=== PATIENT | male | born 2000 | race Caucasian/White ===

== ENCOUNTER 2022-02-20 09:46 | Outpatient (RCR) | payer BC, SELFPAY ==
--- NOTE | 2022-02-20 10:10 | BH.SGPN.GN ---
Behaviors/Verbalizations/Mental Status: []Client alert and oriented, casually dressed and groomed. Eye contact good. Motor activity appropriate. Speech within normal limits. Affect constricted, mood anxious and depressed. Thoughts linear, logical, no signs of hallucinations or delusions. Client Response/Progress/Benefit: []Client first day in IOP tx. Attentive, though remained passively engaged, taking notes and completed worksheet. Connected with discussion on crisis and how coping with external crises by using unhealthy coping skills could result in a personal crisis. Nodding throughout discussion. Group reflected on the importance of having awareness of personal warning signs to prevent reaching crisis point. Group identified potential warning signs for crisis and client completed the personal warning signs worksheet. Client identified personal crisis warning signs to include: negative thoughts, apathy, and not taking care of himself. Client benefited by increasing awareness of what leads to crisis and personal warning signs. Client will continue IOP tx to prevent decompensation and maintain safety, increase understanding and use of healthy skills, as well as improve daily functioning. Narrative Note: []
--- NOTE | 2022-02-20 10:15 | BH.COMM_ITS ---
Communication Note - Communication with Client Communication Note: Pt completed initial paperwork and [facility]. Case discussed with Dr. Alvarado with plan to admit to IOP with dx of F33.2
--- NOTE | 2022-02-20 10:15 | BH.COMM ---
Communication Note - Communication with Client Communication Note: Pt completed initial paperwork and [facility]. Case discussed with Dr. Alvarado with plan to admit to [facility] with dx of F33.2
--- NOTE | 2022-02-20 11:10 | BH.SGPN.GN ---
Behaviors/Verbalizations/Mental Status: []Client alert and oriented, casually dressed and groomed. Eye contact fair. Motor activity restless. Speech within normal limits. Affect constricted, mood anxious. Thoughts linear, logical, no signs of hallucinations or delusions. Client Response/Progress/Benefit: []Client responded well to session as evidenced by client listening attentively to others and providing strategies during small group discussion. Connected as fellow participants discussed the importance of identifying and addressing personal warning signs. Client identified warning signs for crisis and gained further awareness of earliest warning signs. Client created a crisis action plan to help client better manage warning signs for crisis. Client?s action plan for not taking care of self includes: opposite action to take a shower and shave, do one productive thing every day, and identify accomplishments. Client appeared to benefit from creating a crisis action plan and increasing self-awareness. Client's first day in IOP. Client to continue IOP tx to improve daily functioning, increase healthy coping and prevent decompensation.
--- NOTE | 2022-02-20 11:33 | BH.COMM ---
Communication Note - Communication with Client Communication Note: Met with pt to complete initial paperwork and complete the CSSR-S. No significant changes since intake. Pt presents as a moderate risk per the CSSR-S. Pt denies any active suicidal ideations, plan, or intent within the past month but does report chronic passive thoughts and thoughts of not caring if he were to go to sleep and not wake up. Pt additionally reports on several occasions 3 months ago, driving past a arriaga he has had intrusive thoughts about driving into. Denies any active thoughts, plan, or intent at that time. Pt has a hx of one prior interrupted attempt a few years ago in which pt reports he had a loaded gun to his head but stopped himself from pulling the trigger as he reports ?I didn?t want my mom to find me like that?. Reports he did not tell anyone at the time and did not seek medical or psychiatric tx. Reports he has since given his father his gun and denies access to weapons or other lethal means at this time. Reports his parents and girlfriend are primary protective factors. Future oriented. Pt has a hx of self-harming via hitting himself, last occurring 1-2 weeks ago. Case discussed with Dr. Alvardao with plan to admit to IOP with dx Major Depressive Disorder, recurrent, severe, without psychosis F 33.2
--- NOTE | 2022-02-22 10:05 | BH.SGPN.GN ---
Behaviors/Verbalizations/Mental Status: [] Eye contact is good. Motor activity is appropriate. Appearance is casual. Speech is Appropriate. Mood is depressed. Affect is flat. Thoughts are linear and logical. No evidence of psychosis. Client Response/Progress/Benefit: [] Pt participated only when prompted. Attentive during psychoeducation on different anxiety disorders. Attentive during a interactive discussion on defining anxiety, identifying physiological symptoms of anxiety, and identifying safety behaviors (behaviors used to ease anxiety or discomfort which are often unhealthy). Physiological symptoms reported by patient were clenched jaw and shaky hands. Along with peers identified common safety behaviors including; sleeping to cope, cancelling plans, not answering the phone, and utilizing substances to numb the pain. Benefited from increased awareness and insight on anxiety and its impact. Plan is to continue in IOP to maintain safety,increase healthy coping, and prevent decompensation. Narrative Note: []
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
[2022-02-22 11:52] VITALS: BP 144/78; PULSE 75
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
--- NOTE | 2022-02-22 13:02 | BH.DR.ITP ---
Initial Treatment Plan Patient Information Visit Information: ADMISSION DATE: EXPECTED LOS: 4-6 weeks Problems/Symptoms Problem #1:: Depression Symptom:: Sadness, hopelessness, worthlessness, anhedonia, biological disruption of sleep, low energy, decreased concentration, passive thoughts of , fleeting, passive suicidal ideation Problem #2:: Anxiety Symptom:: Worry, rumination, racing thoughts, panic attacks
--- NOTE | 2022-02-23 09:10 | BH.SGPN.GN ---
Behaviors/Verbalizations/Mental Status: [] Eye contact is good. Motor activity is appropriate. Appearance is casual. Speech is Appropriate. Mood is depressed. Affect is flat. Thoughts are linear and logical. No evidence of psychosis. Reviewed daily check in sheet and no reports of suicidal ideations or intent. Client Response/Progress/Benefit: [] Pt participated when prompted. Attentive at times. Emotion for today is content. Mental health wins include spending quality time with GF and I started to work out again yesterday. Reports that he has not worked out in awhile. When asked what triggered him to start yesterday states I was just motivated. Also motivated to make other changes in his life including looking for a new job. Briefly discussed how his current job is not beneficial. He believes that his anxiety is better this week stating he feels more calm. Progress noted per pt report. Benefited from group support. Will continue in IOP to maintain safety, increase healthy coping, and stabilize mood. Narrative Note: []
--- NOTE | 2022-02-23 10:10 | BH.SGPN.GN ---
Behaviors/Verbalizations/Mental Status: [] Eye contact is fair. Motor activity is appropriate. Appearance is casual. Speech is Appropriate. Mood is anxious. Affect is constricted. Thoughts are linear and logical. No evidence of psychosis. Client Response/Progress/Benefit: [] Pt was a passive participant in group discussion and activity. Attentive during psychoeducation on social stigma vs self-stigma. Pt was attentive to others during discussion on the question of What impacts how we define and view ourselves? Pt attentive as group identified several aspects that impact how we view ourselves which include; past experiences/exposure, our thoughts/current mental health state, our emotions, upbringing, and what other people tell us. Pt also participated in identifying examples of social stigma for mental health illness which included too sensitive, looking for attention, overly emotional, psycho, crazy, just an excuse, not working hard enough, lazy, mental health is not real, just a pessimist, and mental health can just be turned off. Pt chose to not share how stigma has impacted him. Benefited from increased awareness of how mental health stigma can impact individuals and treatment. Plan is to continue in IOP to improve daily functioning, increase confidence and prevent decompensation.
--- NOTE | 2022-02-23 12:17 | BH.MTP_ITS ---
Master Treatment Plan - Patient Information Program Physician:: Dr. Alvarado Primary Therapist:: Cathryn Ball [facility] - Psychiatric Diagnoses Psychiatric Diagnoses:: 1. Major depressive disorder, recurrent, severe without psychosis. 2. Generalized anxiety disorder. 3. Rule out Bipolar Disorder Diagnosis Code(s):: F33.2 - Estimated LOS Estimated LOS (in weeks):: 6
--- NOTE | 2022-02-23 15:41 | BH.MDN_ITS ---
Multi-Disciplinary Note - Note 30-min Individual Time Started:: 11:30 Date: 02/23/22 Purpose of session/treatment goals addressed:: Purpose of session was to assess pt's current symptoms and stressors. Additional focus was on establishing IOP treatment goals. Eye Contact:: Fair Motor Activity:: Restless Appearance:: Casual Speech:: Appropriate Mood:: Anxious, Depressed Affect:: Constricted Thoughts:: Linear, Logical, No evidence of hallucinations/delusions noted Staff Interventions:: psychoeducation on: - cognitive triangle and behavioral activation., CBT techniques, rapport building, strengths perspective, treatment planning, goal setting Client Response:: Client reported since middle school he has struggled with anxiety and depression. Client stated he didn't do much about it when he was younger. Client stated he got his first job out of high school working for [employer] which he enjoyed. Client reported after 4 years they let him go and the loss of this job led to significant negative thinking. Client stated this contributed to his aborted suicide attempt in 2020 in which he placed a gun in his mouth but did not pull the trigger. Client reported he did not tell anyone about this aborted attempt. Client stated he does not have access to guns and is not actively suicidal. 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 Client stated he doesn't know what he wants to do as a career and this causes him some stress. Client stated he believes his current job has negatively impacted his mental health. Reports he is seeking counseling because has noticed increased negative thinking and passing thoughts of . Client reported he does hear voices that tell him to hurt himself or hurt others. Stated he will hit himself to make the voices stop. Reported the voices sound like himself. Client reported he lacks healthy coping skills to use in the moment. Client reported he used to have many interests like hanging with friends, hiking, video games, relaxing outside, and camping. Client stated he hasn't engaged in these interests for 1 to 2 years. Client connected with cognitive triangle education, agreeing he would benefit from starting to engage in activities he used to enjoy. Client reported he did go to they gym yesterday and wants to continue doing that because made him feel better. Client identified while in IOP he would like to work on improving mindset, better way to look at life and find healthier coping skills. Client stated his goal for the weekend is to identify 2 daily wins and work out at least 3 times in the next week. Risks/Concerns:: Client reports passive thoughts of . Denies active suicidal ideation, plan or intention to date. future focused. denies access to firearms. Progress Toward Goals/Plan:: Progress noted with pt reporting use of opposite action to get self back to the gym. Pt's first week in IOP. Session focused on establishing goals for IOP. Pt continues to struggle with low motivation, passing thoughts of , loss of interest in most things, and anxious thought patterns. Pt to continue IOP to increase healthy coping, improve daily functioning, improve view of self and prevent decompensation. Time Stopped:: 12:00
--- NOTE | 2022-02-27 10:00 | BH.SGPN.GN ---
Behaviors/Verbalizations/Mental Status: []Eye contact is fair to good. Motor activity is appropriate. Appearance is casual and grooming tended to. Speech is Appropriate, quiet with limited input provided. Mood is anxious and depressed. Affect is constricted. Thoughts are linear and logical. No evidence of psychosis Client Response/Progress/Benefit: []Pt receptive of session, attentive throughout AEB taking notes and nodding during examples provided in discussion. Pt continues to struggle with contributing during discussion and often remains a passive participant. Appeared to connect with group topic of cognitive distortions and the impact of thought patterns on mental health, coping behaviors, and relationships. Reflected that he personally tends to struggle with distortions of: ?jumping to conclusions?, ?labeling?, and ?personalization?. However, pt struggled to further expand upon how these distortions have impacted his mental health and functioning in the past. Pt appeared to benefit from gaining insight on distorted thinking patterns and influence of distortions on maintaining unhealthy maintenance cycles. Progress remains limited as pt still new to treatment and struggles with active engagement in group. Recommended continued IOP treatment to improve sx management, provide psychoeducation on and promote healthy coping behaviors, as well as prevent decompensation. Narrative Note: []
--- NOTE | 2022-02-27 11:10 | BH.SGPN.GN ---
Behaviors/Verbalizations/Mental Status: []Client alert and oriented, casually dressed and groomed. Eye contact fair. Motor activity appropriate. Speech within normal limits. Affect constricted, mood dysthymic and anxious. Thoughts linear, logical, no signs of hallucinations or delusions. Client Response/Progress/Benefit: [] Pt engaged with his team in Cognitive Distortions Jeopardy and utilized notes from psychoeducation on cognitive distortions to assist peers in correctly answering questions. Experiential activity was beneficial as it provided a way for pt to review notes and handouts during psychoeducation to answer questions about cognitive distortions. Patient reported today's group helped him realize how his sister thoughts impact his ability to function and mood. Patient stated it's helpful to know that there is something he can do to change the way he thinks which can improve his mental health. Patient to continue IOP level of care to improve daily functioning, increase use of healthy coping skills, and prevent decompensation.
--- NOTE | 2022-03-01 09:00 | BH.SGPN.GN ---
Behaviors/Verbalizations/Mental Status: []Eye contact is fair. Motor activity is appropriate. Appearance is casual. Speech is Appropriate. Mood is dysthymic. Affect is constricted. Thoughts are linear and logical. No evidence of psychosis. Reviewed daily check in sheet and no reports of suicidal ideations or intent. Client Response/Progress/Benefit: []Client respond well to session as evidenced by sharing thoughts and feelings and listening attentively to others. Client reported mental positive as going on walks for the past 2 days. Client stated it has been helpful to get outside and enjoy the weather. Client reported additional months of positive as taking time to clean his aquarium out yesterday. Stated he also went to the gym again on Sunday which he stated has been helpful. Client identifies stressor as getting into spats with his girlfriend because she is stressed due to moving out of her dorm. Client benefit is most of today's glad. Client seen a benefit from expressing thoughts and feelings. Client to continue IOP level of care to increase confidence, challenge negative thinking, and prevent decompensation. Narrative Note: []
--- NOTE | 2022-03-01 10:08 | BH.SGPN.GN ---
Behaviors/Verbalizations/Mental Status: []Client alert and oriented, casually dressed and groomed. Eye contact fair to good. Motor activity appropriate. Speech within normal limits, quiet with limited input provided. Affect constricted, mood depressed and anxious. Thoughts linear, logical, no signs of hallucinations or delusions. Client Response/Progress/Benefit: []Client responded well to session AEB listening attentively to others and taking notes, however pt continues to struggle to provide any input to discussion. This may impede long-term tx material internalization. Client appeared to connect throughout group discussion defining pitfalls, AEB nodding, as well as psychoeducation on internal and external triggers to pitfalls. Client attentive as group worked to identify impact of pitfalls on mental health progress. Identified that he often allows others to take control of a situation which prevents his own voice from being heard and has been a personal pitfall for him in the past. Client participated in experiential activity illustrating how easy it is to fall into pitfalls when we are unaware of them. Client aided group in problem solving throughout activity. Appeared to benefit from increased knowledge of pitfalls and their triggers. Will continue IOP treatment to improve use of healthy coping skills, prevent decompensation, and continue to work on challenging distorted thoughts. Narrative Note: []
--- NOTE | 2022-03-01 12:01 | BH.MDN ---
Multi-Disciplinary Note - Note 30-min Individual Time Started:: 11:10 Date: 03/01/22 Purpose of session/treatment goals addressed:: Purpose of session was to address goal 1 from [facility] treatment plan. Eye Contact:: Fair Motor Activity:: Restless Appearance:: Casual Speech:: Appropriate Mood:: Euthymic Affect:: Constricted Thoughts:: Linear, Logical, No evidence of hallucinations/delusions noted Staff Interventions:: CBT techniques, rapport building, strengths perspective, goal setting Client Response:: Plan client reported recently he has been getting outside more frequently which he stated has been helping his mood. Client reported he also has been completing personal goals like cleaning out his fish tank and doing other chores. Client stated he has noticed decreased irritability in the last few days. Client reported his depression has been variable. Client reported yesterday he felt depressed, but was able to use opposite action to still get things done and get outside. Client reported on Sunday his depression was decreased and enjoyed his day. Client stated his anxiety has decreased a little in the last week. Client reported he has followed through with using behavioral activation like discussed in previous individual session. Client reached out to several of his friends and has scheduled to hang out on Sunday with them which is something he has not done in a few months. Client reported he also has been getting back into hiking the last few days especially since the weather is nicer. Client reported motivation is improving. Client connected with education provided by therapist about being more aware of what activities he engages in that can improve his mood and what activities he engages in that reinforce depression. Client able to work with therapist to identify several activities that would be helpful to his mood and other activities that would be important to avoid because the the activities reinforce depression. Client identified a small goal for the week is to identify at least 2 positives per day. Client agreed it would be helpful for him to address his anxiety while in group by starting to contribute at least 2 times per group. Risks/Concerns:: Client denies suicidal ideation, plan or intention to date. Future focused. Progress Toward Goals/Plan:: Progress noted with client reporting utilization of behavioral activation to increase engagement in activities he used to enjoy doing like going hiking and hanging out with friends. Client reporting decreased anxiety and irritability in the last week. Client continues to report variable depressive symptoms and needing to use opposite action in order to get chores and other tasks completed throughout the day. Client recommended to continue IOP level of care to continue use of healthy coping skills, improve positive thinking, and prevent decompensation. Time Stopped:: 11:35
--- NOTE | 2022-03-02 09:05 | BH.SGPN.GN ---
Behaviors/Verbalizations/Mental Status: [] Eye contact is good. Motor activity is appropriate. Appearance is casual. Speech is Appropriate. Mood is depressed. Affect is flat. Thoughts are linear and logical. No evidence of psychosis. Reviewed daily check in sheet and no reports of suicidal ideations or intent. Client Response/Progress/Benefit: [] Pt participated only on a couple occasions during group discussion. Declined to share or check-in. Daily symptoms tracker notes 3/5 for depression, 2/5 for anxiety and 1/5 for anger which are all decreased from yesterday. Should be noted that he was 2/5 for suicidal thoughts yesterday and 0/5 today also noting a decrease. Symptoms tracker also indicates that his mood and ability to function have also improve from yesterday. Pt has not been socially engaged in groups since starting the program as he he quiet most of the day. He did offer thoughts during some superficial conversation on movies. No progress noted per pt report however this is indicated in symptom tracker worksheet. Will continue in IOP to maintain safety, increase healthy coping, and improve functioing. Narrative Note: []
--- NOTE | 2022-03-02 10:05 | BH.SGPN.GN ---
Behaviors/Verbalizations/Mental Status: []Client alert and oriented, casually dressed and groomed. Eye contact good. Motor activity appropriate. Speech within normal limits. Affect constricted, mood depressed. Thoughts linear, logical, no signs of hallucinations or delusions. Client Response/Progress/Benefit: []Client receptive to session AEB taking notes throughout discussion on healthy relationships and listening attentively to others. Continues to struggle with actively engaging in group discussions and often opts out of providing personal reflections or processing with group which may impede progress and ability to fully benefit from group. Group discussed the benefits of healthy relationships and factors that contribute to relationships becoming unhealthy. Client nodding in agreement with some factors discussed, including poor communication and unmanaged mental health sx. Client participated in experiential activity modeling healthy relationship behaviors. Willing to take direction from peers, but again remaining a mostly passive participant. Appeared to benefit from increased knowledge of the benefits of healthy relationships and characteristics of unhealthy relationships. Progress remains limited given limited participation in tx process. Will continue IOP treatment to prevent decompensation, continue to promote mood stability, and encourage application of healthy self-care and thought challenging skills. Narrative Note: []
--- NOTE | 2022-03-02 11:08 | BH.SGPN.GN ---
Behaviors/Verbalizations/Mental Status: []Client alert and oriented, casually dressed and groomed. Eye contact fair to good. Motor activity appropriate. Speech within normal limits, quiet with limited input provided. Affect constricted, mood depressed and anxious. Thoughts linear, logical, no signs of hallucinations or delusions. Client Response/Progress/Benefit: []Client responded well to session, actively engaged AEB nodding his head throughout discussion and taking notes. Attentive as group worked to process challenge activity from previous group and identify how barriers and strengths demonstrated in activity can relate to those within own personal relationships. Able to identify healthy and unhealthy forces impacting client?s own current relationships. Client identified trust, support, physical affection, and comfort as current strengths within the relationship with client?s girlfriend. Noted that difficulties with being vague and shutting down have had unhealthy impacts on the relationship at times. Client reflected that he would like to work on challenging himself to practice being more open and honest about what is bothering him. Appeared to benefit from reflecting upon personal relationship strengths, as well as brainstorming strategies to build healthier relationships. Pt recommended to continue IOP tx to further improve engagement, promote mood stability, continue working on building healthy coping skills for mood management, as well as prevent decompensation. Narrative Note: []
--- NOTE | 2022-03-09 14:45 | BH.COMM ---
Communication Note - Communication with Client Communication Note: Client has no showed/no called IOP 3 times this week. Therapist left voicemail that if client does not return phone call by 03/13/22 he will be discharged from IOP.
--- NOTE | 2022-03-15 11:10 | BH.SGPN.GN ---
Behaviors/Verbalizations/Mental Status: [] Eye contact is good. Motor activity is appropriate. Appearance is casual. Speech is Appropriate. Mood is depressed. Affect is flat. Thoughts are linear and logical. No evidence of psychosis Client Response/Progress/Benefit: [] Pt did not participate in group discussions. Attentive during psychoeducation on the 4 A's of Coping with Stress (Avoid, Alter, Adapt, Accept). Participated in experiential activity in which group members had to utilize stress management skills in the moment. Pt agreed with group consensus that activity caused him to be frustrated, tense, and anxious. He shared skills that he utilized in the moment to continue with group activity. Pt identified a stressor to focus on which was financial worry/money and will attempt to implement the coping skills of :alter stating that he he has not alter his reservations about accepting help from others. Benefited from processing in the moment stress management strategies and identifying new ways to cope with stress. Will continue in IOP to prevent decompensation, increase healthy coping skills, and maintain safety. Narrative Note: []
--- NOTE | 2022-03-16 10:10 | BH.SGPN.GN ---
Behaviors/Verbalizations/Mental Status: []Pt alert and oriented, casually dressed and groomed. Eye contact poor. Motor activity restless. Speech within normal limits. Affect constricted, mood anxious and dysthymic. Thoughts linear, logical, no signs of hallucinations or delusions. Client Response/Progress/Benefit: []Pt responded well to session AEB sharing and listening attentively to others. Group provided examples of benefits of having social support, including: validation, increased resilience, and better symptom management. Pt also participated in group discussion regarding the barriers to accessing support including personal examples like: lack of communication, not following through, isolation, and not paying attention. Pt participated in experiential activity illustrating the impact communication, boundaries, and patience play in creating healthy support systems. Pt appeared to benefit from increased knowledge of the benefits of social support and greater self-awareness. Will continue IOP tx to prevent decompensation, reduce isolation, and improve daily functioning. Narrative Note: []
--- NOTE | 2022-03-16 11:10 | BH.SGPN.GN ---
Behaviors/Verbalizations/Mental Status: []Pt alert and oriented, casually dressed and groomed. Eye contact poor. Motor activity appropriate. Speech within normal limits. Affect constricted, mood anxious. Thoughts linear, logical, no signs of hallucinations or delusions. Client Response/Progress/Benefit: []Pt was an active participant throughout AEB contributing to discussion, providing personal examples, and taking notes. Pt provided input during discussion on the types of support our supports can provide. Pt able to identify current support system and barriers that get in the way of using supports. Pt reported after identifying what type of supports pt receives, pt gained awareness that pt could benefit from more informational support about his mental health. Pt wants to work on finding resources about his mental health and potentially finding support groups online. Pt shared this would give pt knowledge and feel less alone. Pt seemed to benefit from identifying the type of support pt needs to work on improving. Pt recommended to continue IOP tx to reduce avoidance, improve emotional regulation skills, and prevent decompensation. Narrative Note: []
== END 2022-03-21 23:59 ==
LOC: BHIOP 09:46
PROVIDERS: PCP Family Medicine; Referring Provider Psychiatry & Neurology Psychiatry; Visit Provider Psychiatry & Neurology Psychiatry
DX: F33.2 Major depressive disorder, recurrent severe without psychotic features (principal); F41.1 Generalized anxiety disorder; E66.9 Obesity, unspecified; Z79.899 Other long term (current) drug therapy; Z91.51 Personal history of suicidal behavior
CPT/HCPCS: S9480; 90832; 90853

== ENCOUNTER 2022-03-22 07:26 | Outpatient (RCR) | payer BC, SELFPAY ==
[2022-03-22 01:11] VITALS: BP 144/78; PULSE 75
--- NOTE | 2022-03-22 11:15 | BH.SGPN.GN ---
Behaviors/Verbalizations/Mental Status: []Pt alert and oriented, casually dressed and groomed. Eye contact poor. Motor activity restless. Speech within normal limits. Affect constricted, mood anxious. Thoughts linear, logical, no signs of hallucinations or delusions. Client Response/Progress/Benefit: []Pt was a passive participant and did not share out in small or large group discussion. Pt completed strengths exploration worksheet and identified personal strengths, but pt did not share with group. Pt continues to be passive during group which makes it difficult to gather pt?s response and see progress. Pt appeared to listen as peers discussed barriers keeping them from using their strengths. Benefited from gaining insight from peers and interacting with others instead of isolating. Pt to continue IOP tx to prevent decompensation, reduce avoidance, and improve daily functioning. Narrative Note: []
--- NOTE | 2022-03-22 11:41 | PCM.BH.PN ---
Progress Note Progress Note: History of Present Illness/Interim History: [] The patient is a 22-year-old male who is seen in follow-up at the [facility] behavioral health IOP program where he is being treated for depression and anxiety. I last saw the patient about 1 month ago and at that time his Zoloft was increased to 150 mg and trazodone was added for sleep. The patient missed a week of IOP due to his depression worsening 2 weeks ago when his girlfriend left for college. He returned to the IOP last week and he states that he feels a lot better. He is recovered from his girlfriend leaving and is using this time to get in shape and he plans to look for a job now also. His mood is much improved and much less depressed. He has much less crying and this is rare now. He denies hopelessness now. He denies any passive thoughts of . He still has occasional fleeting passive thoughts of suicide but feels it is extremely passive and somewhat habitual. His sleep is much better with the trazodone at 8 or 9 hours a night. His panic attacks have decreased to 1 every 2 to 3 weeks now. He is exercising using hiking and lifting weights. He feels he is really benefited from the IOP program and has learned valuable skills to help cope with his mental health issues. Current Psychiatric Medications: [] Zoloft 150 mg p.o. daily (x1 month); trazodone 50 mg p.o. nightly Mental Status Examination: [] Patient is an obese, tall male who appears normal for his stated age. He is casually dressed and groomed with good hygiene. He is ambulatory with a normal gait. He has no psychomotor agitation or retardation. He is cooperative and pleasant during the interview. Mood is mildly depressed. Affect is constricted but bright at times. Thought process is goal-directed and organized. Thought content: There is no evidence of passive thoughts of . There is no evidence currently of fleeting, passive suicidal ideation. There is no evidence of active suicidal ideation, plan for suicide, homicidal ideation, hallucinations or delusions. Reality testing is intact. Intelligence is average. Judgment is intact. Insight is good. Impulsivity is moderate. Diagnoses: [] 1. Major depressive disorder, recurrent, severe without psychosis (improving) 2. Generalized anxiety disorder 3. Obesity 4. Primary support and work issues Plan: [] The patient will continue the IOP program at [facility] as the structure, support, education and group therapy will hopefully prevent worsening of the patient's symptoms which could require hospitalization. He felt safe during the interview and if it anytime he does not feel safe he will let us know or go to the emergency room. The risks, options, possible complications and side effects of the medication were again discussed with the patient and he understands and accepts these. The patient agrees to continue exercising. He agrees to obtain the blood work that he has not gotten done yet which includes a vitamin D and TSH level. He wishes to continue the Zoloft at the current dose and prescription was sent in for this. I will see the patient in follow-up in 2 weeks and he will continue to follow-up with his outpatient providers.
--- NOTE | 2022-03-27 10:10 | BH.SGPN.GN ---
Behaviors/Verbalizations/Mental Status: []Eye contact is poor. Motor activity is restless. Appearance is casual and grooming tended to. Speech is Appropriate. Mood is anxious and apathetic. Affect is flat. Thoughts are linear and logical. No evidence of psychosis Client Response/Progress/Benefit: []Pt receptive of session, quiet, and often appears disengaged AEB restlessness and poor eye contact. Appeared to connect with group topic of cognitive distortions and the impact of thought patterns on mental health, coping behaviors, and relationships. Pt?s progress continues to be limited due to inconsistent attendance and limited engagement in group sessions. Will continue IOP tx to reduce avoidance, increase use of healthy coping skills, and improve daily functioning. Narrative Note: []
--- NOTE | 2022-03-31 11:57 | BH.DS ---
Discharge Summary - Demographics Date of Admission:: 02/20/22 Discharge Date: 03/31/22 Presenting Problems at Admission:: The patient is a 22-year-old single male who was referred to the [facility] IOP program by his father. The patient has a history of depression, anxiety and worsening depression and anxiety in the past few months which has led to him being unable to function well at work or at home. He has some trouble doing his activity videos of daily living and hygiene. . The patient was working as in [employer] for the past year and liked his job a lot but was unable to function well enough and so quit his job 2 weeks ago. The patient feels currently stuck and feels alone and disconnected from others. His greatest stress is how to go on in life. Patient endorses feeling sadness and cries at time. He endorses hopelessness, worthlessness, anhedonia, low energy, decreased concentration, passive thoughts of , fleeting, passive suicidal ideation. He states that he feels that a few times a week he has brief episodes where he has increased energy and gets a lot done with decreased sleep but is tired during the day and he feels that this indicates that he may have bipolar disorder. The patient used to exercise but has not exercised in 2 years until yesterday he exercised once. Patient is a worrier by nature and has racing thoughts at times and ruminates negatively about himself. He has panic attacks about once a week. Discharge Diagnoses:: 1. Major depressive disorder, recurrent, severe without psychosis F33.2. 2. Generalized anxiety disorder Reason for Discharge:: Pt has only attended [facility] two times in the last two weeks. He has no called/no showed 4 times in the last two weeks. Due to pt not attending enough sessions per week for it to be considered [facility] level of care he will be discharged today. - Treatment Progress During Treatment & Response: Minimal progress. Pt has attended 10 sessions in 6 weeks. He no showed/no called several sessions throughout his time in IOP. At last individual session pt continued to report depressed symptoms, increased negative thinking, and low motivation. Pt struggled throughout IOP with using healthy coping skills. Pt tended to revert back to unhealthy coping skills like isolation when feeling depressed. Pt has shown some progress with starting to hang out with his friends again and also got back into hiking. Struggles to do this consistently. Issues Still to be Addressed:: Pt could benefit from increasing healthy coping skills, learning ways to apply skills consistently, and improving ability to challenge negative/distorted thought patterns. Pt struggles with managing outside stressors which leads to external events having significant impact on his mood. Could benefit from work on managing external stressors. Discharge Recommendations/Instructions:: Pt had been provided resources for outpatient counseling and was encouraged to schedule appointment. Pt is encourated to continue seeing outpatient PCP for medication management. Discharge Handout: Complete Discharge Handout with client on aftercare options and continuity of care.
== END 2022-03-31 10:18 | disposition home or self-care (01) ==
LOC: BHIOP 07:26
PROVIDERS: PCP Family Medicine; Referring Provider Psychiatry & Neurology Psychiatry; Visit Provider Psychiatry & Neurology Psychiatry
DX: F33.2 Major depressive disorder, recurrent severe without psychotic features (principal); F41.1 Generalized anxiety disorder; E66.9 Obesity, unspecified; Z79.899 Other long term (current) drug therapy; Z91.51 Personal history of suicidal behavior
CPT/HCPCS: S9480; 90832; 90853